=== PATIENT | female | born 1970 | race Caucasian/White ===

== ENCOUNTER 2018-11-30 18:39 | Emergency (ER) | payer SELFPAY ==
[2018-11-30 21:34] LABS: URINE BLOOD (Dip) POC 2+ (NEGATIVE); URINE GLUCOSE (Dip) POC Negative (NEGATIVE); URINE KETONES (Dip) POC Negative (NEGATIVE); URINE LEUKOCYTE EST (Dip) POC Trace (NEGATIVE); URINE NITRITE (Dip) POC Negative (NEGATIVE); URINE TOTAL PROTEIN POC Negative (NEGATIVE)
== END 2018-11-30 21:26 | disposition home or self-care (01) ==
LOC: FTE 18:39
DX: N39.0 Urinary tract infection, site not specified (principal)
CPT/HCPCS: 81003; 99283

== ENCOUNTER 2018-12-14 13:06 | Emergency (ER) | payer SELFPAY ==
[2018-12-14] MEDS: METHYLPREDNISOLONE 125 MG INJ IM (14:24)
[2018-12-14] MEDS: KETOROLAC 30 MG INJ IM (14:25)
== END 2018-12-14 14:51 | disposition home or self-care (01) ==
LOC: FTE 13:06
DX: M54.42 Lumbago with sciatica, left side (principal)
CPT/HCPCS: 81025; 96372; 99284-25